=== PATIENT | male | born 1980 | race Caucasian/White ===

== ENCOUNTER 2018-05-27 09:10 | Emergency (ER) | payer MEDICARE ==
[2018-05-27] MEDS ORDERED: SULF1TAB24 PO (09:51)
[2018-05-27] MEDS ORDERED: CEPH-264 PO (09:51)
--- NOTE | 2018-05-27 09:51 | PHYS DOC ---
Adult General Chief Complaint Chief Complaint: SKIN PROBLEM HPI HPI Patient is a 37-year-old male who presents for evaluation of skin lesion to left groin. He states he has had lesions in this area many times in the past and that he usually tries to get put on antibiotics early on that he does not require an incision and drainage. He is HIV positive and moved to the area recently and does not yet have an infectious disease doctor. He states that he sweats a lot and has been told that he has hidradenitis suppurativa. He is alert and oriented 4, calm, and appears to be no distress. He waits tables for a living and states the hot weather has been making him sweat more than usual. Review of Systems Review of Systems Constitutional: Denies fever or chills [] Eyes: Denies change in visual acuity, redness, or eye pain [] HENT: Denies nasal congestion or sore throat [] Respiratory: Denies cough or shortness of breath [] Cardiovascular: No additional information not addressed in HPI [] GI: Denies abdominal pain, nausea, vomiting, bloody stools or diarrhea [] : Denies dysuria or hematuria [] left groin lesion Musculoskeletal: Denies back pain or joint pain [] Integument: Denies rash [] left groin lesion Neurologic: Denies headache, focal weakness or sensory changes [] Endocrine: Denies polyuria or polydipsia [] All other systems were reviewed and found to be within normal limits, except as documented in this note. Physical Exam Physical Exam Constitutional: Well developed, well nourished, no acute distress, non-toxic appearance. [] HENT: Normocephalic, atraumatic, bilateral external ears normal, oropharynx moist, no oral exudates, nose normal. [] Eyes: PERRLA, EOMI, conjunctiva normal, no discharge. [] Neck: Normal range of motion, no tenderness, supple, no stridor. [] Cardiovascular:Heart rate regular rhythm, no murmur [] Lungs & Thorax: Bilateral breath sounds clear to auscultation [] Abdomen: Bowel sounds normal, soft, no tenderness, no masses, no pulsatile masses. [] Skin: Warm, dry, no erythema, no rash. [] left groin nodule/lesion, no fluctuance, not ready for I&D at this time, no skin redness, superficial Back: No tenderness, no CVA tenderness. [] Extremities: No tenderness, no cyanosis, no clubbing, ROM intact, no edema. [] Neurologic: Alert and oriented X 3, normal motor function, normal sensory function, no focal deficits noted. [] Psychologic: Affect normal, judgement normal, mood normal. [] EKG EKG [] Radiology/Procedures Radiology/Procedures [] Course & Med Decision Making Course & Med Decision Making Pertinent Labs and Imaging studies reviewed. (See chart for details) [] Dragon Disclaimer Dragon Disclaimer This electronic medical record was generated, in whole or in part, using a voice recognition dictation system. Departure Departure: Impression: Primary Impression: Carbuncle of groin Disposition: HOME, SELF-CARE Condition: STABLE Referrals: PCPDEMIAN (PCP) VADIM BISHOP MD Patient Instructions: Abscess, Cellulitis Additional Instructions: Take the prescribed antibiotics as directed. Follow-up with Dr. Bishop from infectious disease within the next 2-3 days. Return to the emergency Department immediately for new or worsening symptoms. Scripts Cephalexin (KEFLEX) 500 Mg Capsule 1 CAP PO TID, #30 CAP Prov: ABBY NOEL DO 05/27/18 Sulfamethoxazole/Trimethoprim (BACTRIM DS TABLET) 1 Each Tablet 1 TAB PO BID, #20 TAB Prov: ABBY NOEL DO 05/27/18 ABBY NOEL DO May 27, 2018 09:51
[2018-05-27 10:15] VITALS: BP 102/66
== END 2018-05-27 10:16 | disposition home or self-care (01) ==
LOC: ER 09:10
DX: L02.234 Carbuncle of groin (principal)
CPT/HCPCS: 99283

== ENCOUNTER 2018-06-07 09:48 | Emergency (ER) | payer MEDICARE ==
[~2018-06-07] VITALS: Ht 175.3 cm; Wt 65.8 kg
[~2018-06-07 09:48] MED LIST: CEPH-264 PO; SULF1TAB24 PO
[2018-06-07 09:55] VITALS: BP 137/80
[2018-06-07] MEDS ORDERED: IBUP600T16 PO (10:09)
--- NOTE | 2018-06-07 10:09 | PHYS DOC ---
Past History Past Medical History: HIV Past Surgical History: No Surgical History Alcohol Use: None Drug Use: None Adult General Chief Complaint Chief Complaint: SHOULDER INJURY HPI HPI 37-year-old right-handed male patient with history of HIV state he lifted some heavy weight and was above his head 3 days ago and since yesterday has had pain in right shoulder pain with painful range of abduction of his shoulder. Patient denies focal neuro deficit, fever and chills, nausea and vomiting, history of the same problem. Review of Systems Review of Systems Constitutional: Denies fever or chills [] Eyes: Denies change in visual acuity, redness, or eye pain [] HENT: Denies nasal congestion or sore throat [] Respiratory: Denies cough or shortness of breath [] Cardiovascular: No additional information not addressed in HPI [] GI: Denies abdominal pain, nausea, vomiting, bloody stools or diarrhea [] : Denies dysuria or hematuria [] Musculoskeletal: Denies back pain, reports joint pain [] Integument: Denies rash or skin lesions [] Neurologic: Denies headache, focal weakness or sensory changes [] Endocrine: Denies polyuria or polydipsia [] All other systems were reviewed and found to be within normal limits, except as documented in this note. Allergies Allergies Allergies Coded Allergies Type Severity Reaction Last Updated Verified clindamycin Allergy Unknown 05/27/18 Yes Physical Exam Physical Exam Constitutional: Well developed, well nourished, mild distress, non-toxic appearance. [] HENT: Normocephalic, atraumatic Eyes: PERRLA, EOMI, conjunctiva normal, no discharge. [] Neck: Normal range of motion, no tenderness, supple, no stridor. [] Cardiovascular:Heart rate regular rhythm, no murmur [] Lungs & Thorax: Bilateral breath sounds clear to auscultation [] Skin: Warm, dry, no erythema, no rash. [] Back: No tenderness, no CVA tenderness. [] Extremities: Right shoulder without deformity or edema, limited abduction because of pain, No tenderness, no cyanosis, no clubbing, no edema. [] Neurologic: Alert and oriented X 3, normal motor function, normal sensory function, no focal deficits noted. [] Psychologic: Affect normal, judgement normal, mood normal. [] Current Patient Data Vital Signs Vital Signs Date Time Temp Pulse Resp B/P (MAP) Pulse Ox O2 Delivery O2 Flow Rate FiO2 06/07/18 09:55 87 18 100 Room Air EKG EKG [] Radiology/Procedures Radiology/Procedures [] Course & Med Decision Making Course & Med Decision Making Evaluation of patient in ER showed 37-year-old male patient with complaining of pain in the right shoulder after lifting weights. Patient had limited range of abduction because of pain. Shoulder sling was applied and patient instructed to perform shoulder exercises. Dragon Disclaimer Dragon Disclaimer This electronic medical record was generated, in whole or in part, using a voice recognition dictation system. Departure Departure: Impression: Primary Impression: Rotator cuff injury Additional Impression: HIV (human immunodeficiency virus infection) Disposition: HOME, SELF-CARE (at [facility]) Condition: STABLE Referrals: PCP,NO (PCP) Patient Instructions: Rotator Cuff Injury Additional Instructions: Apply ice on the affected area Follow-up with your primary care physician in 3-5 days Return to ER if not getting better Scripts Ibuprofen (IBUPROFEN) 600 Mg Tablet 600 MG PO TID, #20 TAB Prov: HAYDER LUI MD 06/07/18 Problem Qualifiers HAYDER LUI MD Jun 07, 2018 10:09
== END 2018-06-07 10:12 | disposition home or self-care (01) ==
LOC: ER 09:48
DX: S46.001A Unspecified injury of muscle(s) and tendon(s) of the rotator cuff of right shoulder, initial encounter (principal); Z88.1 Allergy status to other antibiotic agents; X50.0XXA Overexertion from strenuous movement or load, initial encounter; Y93.89 Activity, other specified; Y99.8 Other external cause status; Y92.89 Other specified places as the place of occurrence of the external cause
CPT/HCPCS: 99282

== ENCOUNTER 2018-08-26 09:09 | Emergency (ER) | payer MEDICARE ==
[~2018-08-26] VITALS: Ht 175.3 cm; Wt 68.0 kg
[~2018-08-26 09:09] MED LIST changes: +IBUP600T16 PO
[2018-08-26] MEDS ORDERED: HYDR25TA PO (09:33)
--- NOTE | 2018-08-26 09:33 | PHYS DOC ---
Past History Past Medical History: HIV Past Surgical History: No Surgical History Alcohol Use: None Drug Use: None Adult General Chief Complaint Chief Complaint: SKIN RASH/ABSCESS HPI HPI Patient is a 37 year old male with history of HIV who presents with complaining of pruritic rash on bilateral cubital area and flanks since yesterday without shortness of breath, fever and chills, nausea and vomiting history of the same rash, sick contact. Review of Systems Review of Systems Constitutional: Denies fever or chills [] Eyes: Denies change in visual acuity, redness, or eye pain [] HENT: Denies nasal congestion or sore throat [] Respiratory: Denies cough or shortness of breath [] Cardiovascular: No additional information not addressed in HPI [] GI: Denies abdominal pain, nausea, vomiting, bloody stools or diarrhea [] : Denies dysuria or hematuria [] Musculoskeletal: Denies back pain or joint pain [] Integument: Reports rash Neurologic: Denies headache, focal weakness or sensory changes [] Endocrine: Denies polyuria or polydipsia [] All other systems were reviewed and found to be within normal limits, except as documented in this note. Allergies Allergies Allergies Coded Allergies Type Severity Reaction Last Updated Verified clindamycin Allergy Unknown 05/27/18 Yes Physical Exam Physical Exam Constitutional: Well developed, well nourished, mild distress, non-toxic appearance. [] HENT: Normocephalic, atraumatic, bilateral external ears normal, oropharynx moist, no oral exudates, nose normal. [] Eyes: PERRLA, EOMI, conjunctiva normal, no discharge. [] Neck: Normal range of motion, no tenderness, supple, no stridor. [] Cardiovascular:Heart rate regular rhythm, no murmur [] Lungs & Thorax: Bilateral breath sounds clear to auscultation [] Skin: Warm, dry, no erythema, scattered papular rash on bilateral cubital area and flanks without sign of infection Back: No tenderness, no CVA tenderness. [] Extremities: No tenderness, no cyanosis, no clubbing, ROM intact, no edema. [] Neurologic: Alert and oriented X 3, normal motor function, normal sensory function, no focal deficits noted. [] Psychologic: Affect anxious, judgement normal, mood normal. [] EKG EKG [] Radiology/Procedures Radiology/Procedures [] Course & Med Decision Making Course & Med Decision Making Evaluation of patient in ER showed 37-year-old male patient with history of HIV presented with pruritic rash since yesterday. Patient had papular rash that looked like insect bite or allergic reaction. Patient instructed to take hydroxyzine and follow up with his HIV specialist in couple days if not getting better. Dragon Disclaimer Dragon Disclaimer This electronic medical record was generated, in whole or in part, using a voice recognition dictation system. Departure Departure: Impression: Primary Impression: Rash due to allergy Additional Impression: HIV (human immunodeficiency virus infection) Disposition: HOME, SELF-CARE (at 0 [id number]) Condition: STABLE Referrals: PCP,NO (PCP) Patient Instructions: Insect Bite, Rash Additional Instructions: Follow-up with your primary care physician in 2-3 days Return to ER if not getting better Scripts Hydroxyzine Hcl (HYDROXYZINE HCL) 25 Mg Tablet 1 TAB PO TID PRN for ITCHING, #30 TAB Prov: HAYDER LUI MD 08/26/18 Problem Qualifiers HAYDER LUI MD Aug 26, 2018 09:33
[2018-08-26 10:43] VITALS: BP 117/78
== END 2018-08-26 10:15 | disposition home or self-care (01) ==
LOC: ER 09:09
DX: T78.40XA Allergy, unspecified, initial encounter (principal); R21 Rash and other nonspecific skin eruption; Z21 Asymptomatic human immunodeficiency virus [HIV] infection status; Z88.1 Allergy status to other antibiotic agents; X58.XXXA Exposure to other specified factors, initial encounter
CPT/HCPCS: 99283

== ENCOUNTER 2021-06-16 21:09 | Emergency (ER) | payer MEDICARE, MEDICAID ==
[~2021-06-16] VITALS: Ht 177.8 cm; Wt 78.8 kg
[~2021-06-16 21:09] MED LIST changes: +HYDR25TA PO
--- NOTE | 2021-06-16 21:12 | PHYS DOC ---
Past History Past Medical History: Anxiety, HIV Past Surgical History: No Surgical History Alcohol Use: None Drug Use: None General Adult HPI: HPI: ".. I am never going skate boarding again.. or at least for a while.. I messed up this Rt. foot and ankle.... " Patient is a 40 year old male who presents with above hx and complaints Rt. foot injury. Patient has obvious swelling and localized pain at proximal side of right fifth metatarsal. Has positive pain with foot squeeze. Calcaneus appears to be stable and Achilles appears to be stable. Does have some lateral malleolus tenderness and laxity on drawer. No upper leg tenderness. No other injury in the skateboard fall. Patient normally follows with Dr. Robison infectious disease at [facility]. Reportedly his HIV status is stable. No recent travel. No specific ill contacts. Pt. is unable to bear weight on right foot and ankle. Cap refill in toes and right foot is equal to left foot. Review of Systems: Review of Systems: Constitutional: Denies fever or chills Eyes: Denies change in visual acuity HENT: Denies nasal congestion or sore throat Respiratory: Denies cough or shortness of breath Cardiovascular: Denies chest pain or edema GI: Denies abdominal pain, nausea, vomiting, bloody stools or diarrhea : Denies dysuria Musculoskeletal: Complains of right ankle and foot pain Integument: Denies rash Neurologic: Denies headache, focal weakness or sensory changes Endocrine: Denies polyuria or polydipsia Lymphatic: Denies swollen glands Psychiatric: Denies depression or anxiety Family History: Family History: Noncontributory to presentation Current Medications: Current Meds: See nursing for home meds Allergies: Allergies: Allergies Coded Allergies Type Severity Reaction Last Updated Verified clindamycin Allergy Unknown 05/27/18 Yes Physical Exam: PE: Constitutional: in acute distress, non-toxic appearance. [] HENT: Normocephalic, atraumatic, bilateral external ears normal, oropharynx moist, no oral exudates, nose normal. [] Eyes: PERRLA, EOMI, conjunctiva normal, no discharge. [] Neck: Normal range of motion, no tenderness, supple, no stridor. [] Cardiovascular:Heart rate regular rhythm, no murmur [] Lungs & Thorax: Bilateral breath sounds equal apex on auscultation [] Abdomen: Bowel sounds normal, soft, no tenderness, no masses, no pulsatile masses. [] Skin: Warm, dry, no erythema, no rash. [] Back: No tenderness, no CVA tenderness. [] Extremities: No tenderness, no cyanosis, no clubbing, ROM intact, no edema. Except for findings in right foot and ankle as per HPI Neurologic: Alert and oriented X 3, normal motor function, normal sensory function, no focal deficits noted. [] Psychologic: Affect anxious, judgement normal, mood normal. [] EKG: EKG: [] Radiology/Procedures: Radiology/Procedures: [][place] [address] IMAGING REPORT Signed PATIENT: LAWSON FERGUSON ACCOUNT: [id number] : 1980 LOCATION: ER AGE: 40 SEX: M EXAM STATUS: DEP ER ORD. PHYSICIAN: REBA EVERETT MD REASON: skate board -injry PROCEDURE: FOOT RIGHT 3V XR EXAM OF ANKLE_RIGHT 3VIEWS, XR FOOT_RIGHT 3 VIEWS History: Reason: skate board -injry / Spl. Instructions: / History: . Pain Technique: 3 views right ankle and 3 views right foot Comparison: None. Findings: Lateral ankle soft tissue swelling. No dislocation. Acute fifth metatarsal base fracture with adjacent soft tissue swelling. Impression: 1. Acute fifth metatarsal base fracture. Electronically signed by: Peter Macedo DO (06/16/2021 11:15 PM) [facility] DICTATED AND SIGNED BY: PETER MACEDO DO DATE: 06/16/21 [id number] CC: VADIM ROBISON MD; REBA EVERETT MD ~MTH0 0 Heart Score: C/O Chest Pain: N/A Risk Factors: Risk Factors: DM, Current or recent (<one month) smoker, HTN, HLP, family history of CAD, obesity. Risk Scores: Score 0 - 3: 2.5% MACE over next 6 weeks - Discharge Home Score 4 - 6: 20.3% MACE over next 6 weeks - Admit for Clinical Observation Score 7 - 10: 72.7% MACE over next 6 weeks - Early Invasive Strategies Course & Med Decision Making: Course & Med Decision Making Pertinent Labs and Imaging studies reviewed. (See chart for details) Patient to wear splint. Use crutches. Elevate ankle. Follow-up with [facility]. Take Tylenol and ibuprofen as needed for pain. Must follow-up. Distal neurovascular intact after application of splint. Impression: 1. Fracture right fifth metatarsal. Proximal 2. Hx. HIV [] Dragon Disclaimer: Dragon Disclaimer: This electronic medical record was generated, in whole or in part, using a voice recognition dictation system. Departure Departure: Referrals: NON,STAFF (PCP) Dragon Disclaimer This chart was dictated in whole or in part using Voice Recognition software in a busy, high-work load, and often noisy Emergency Department environment. It may contain unintended and wholly unrecognized errors or omissions. REBA EVERETT MD Jun 16, 2021 21:12
[2021-06-16 21:20] VITALS: BP 125/82
[2021-06-16] MEDS ORDERED: HYDROcodon/IBUPROFEN 7.5/200MG 1 TAB TABLET PO ONE (21:30)
[2021-06-16] MEDS ORDERED: oxyCODONE/APAP 5/325 1 TAB TABLET PO ONE (22:00)
[2021-06-16] MEDS ORDERED: ACETAMINOPHEN 500 MG TABLET PO ONE ×2 (22:15)
[2021-06-16] MEDS ORDERED: KETOROLAC 60 MG/2 ML VIAL. IM ONE (22:15)
--- NOTE | 2021-06-16 23:17 | RAD ---
XR EXAM OF ANKLE_RIGHT 3VIEWS, XR FOOT_RIGHT 3 VIEWS History: Reason: skate board -injry / Spl. Instructions: / History: . Pain Technique: 3 views right ankle and 3 views right foot Comparison: None. Findings: Lateral ankle soft tissue swelling. No dislocation. Acute fifth metatarsal base fracture with adjacent soft tissue swelling. Impression: 1. Acute fifth metatarsal base fracture. Electronically signed by: Peter Macedo DO (06/16/2021 11:15 PM) [place]
== END 2021-06-16 23:15 | disposition home or self-care (01) ==
LOC: ER 21:09
DX: S92.351A Displaced fracture of fifth metatarsal bone, right foot, initial encounter for closed fracture (principal); Z88.1 Allergy status to other antibiotic agents; W01.0XXA Fall on same level from slipping, tripping and stumbling without subsequent striking against object, initial encounter; Y93.51 Activity, roller skating (inline) and skateboarding; Y92.89 Other specified places as the place of occurrence of the external cause; Y99.8 Other external cause status
CPT/HCPCS: 29515; 73610; 73630; 99283-25; 99284-25

== ENCOUNTER 2021-06-24 19:28 | Emergency (ER) | payer MEDICARE, MEDICAID ==
[~2021-06-24] VITALS: Ht 177.8 cm; Wt 78.8 kg
--- NOTE | 2021-06-24 19:31 | PHYS DOC ---
Past History Past Medical History: Anxiety, HIV Past Surgical History: No Surgical History Alcohol Use: Occasionally Drug Use: None General Adult HPI: HPI: ".. I got this groin abscess.. I have had it several times here on the left... It is kind of scarred up... I have been on Bactrim but it is not turning around like it should..." Patient is a 40 year old male who presents with above hx and complaint left groin abscess. Patient does have area that is hard and indurated and a central fluctuant area. Area of previous abscesses. Patient does have a history of HIV and follows with . Patient currently in a walking cast for prior right foot fracture from visit of 06/16/2021. Discussed options of treatment patient requests drainage of abscess. Review of Systems: Review of Systems: Constitutional: Denies fever or chills Eyes: Denies change in visual acuity HENT: Denies nasal congestion or sore throat Respiratory: Denies cough or shortness of breath Cardiovascular: Denies chest pain or edema GI: Denies abdominal pain, nausea, vomiting, bloody stools or diarrhea : Denies dysuria Musculoskeletal: Denies back pain or joint pain Integument: Complains of abscess left groin Neurologic: Denies headache, focal weakness or sensory changes Endocrine: Denies polyuria or polydipsia Lymphatic: Denies swollen glands Psychiatric: Denies depression or anxiety Family History: Family History: Noncontributory to presentation Current Medications: Current Meds: See nursing for home meds Allergies: Allergies: Allergies Coded Allergies Type Severity Reaction Last Updated Verified clindamycin Allergy Unknown 05/27/18 Yes Physical Exam: PE: Constitutional: Well developed, well nourished, moderate acute distress, non- toxic appearance. [] HENT: Normocephalic, atraumatic, bilateral external ears normal, oropharynx moist, no oral exudates, nose normal. [] Eyes: PERRLA, EOMI, conjunctiva normal, no discharge. [] Neck: Normal range of motion, no tenderness, supple, no stridor. [] Cardiovascular:Heart rate regular rhythm, no murmur [] Lungs & Thorax: Bilateral breath sounds clear to auscultation [] Abdomen: Bowel sounds normal, soft, no tenderness, no masses, no pulsatile masses. [] Skin: Warm, dry, no erythema, no rash. [] Abscess left groin Back: No tenderness, no CVA tenderness. [] Extremities: No tenderness, no cyanosis, no clubbing, ROM intact, no edema. Except right foot and walking cast. Neurologic: Alert and oriented X 3, normal motor function, normal sensory function, no focal deficits noted. [] Psychologic: Affect anxious, judgement normal, mood normal. [] EKG: EKG: [] Radiology/Procedures: Radiology/Procedures: [] Heart Score: C/O Chest Pain: N/A Risk Factors: Risk Factors: DM, Current or recent (<one month) smoker, HTN, HLP, family history of CAD, obesity. Risk Scores: Score 0 - 3: 2.5% MACE over next 6 weeks - Discharge Home Score 4 - 6: 20.3% MACE over next 6 weeks - Admit for Clinical Observation Score 7 - 10: 72.7% MACE over next 6 weeks - Early Invasive Strategies Course & Med Decision Making: Course & Med Decision Making Pertinent Labs and Imaging studies reviewed. (See chart for details) Procedure note-incision and drainage-area of abscess cleaned with Betadine. 1 stick with 11 blade. Return of purulent pus approximately 4 cc. Patient to apply warm compresses of salt water and Epson salt 4 times a day then apply Polysporin. Continue Bactrim. Follow-up with Dr. Bishop. Return if any concerns. Impression: 1. Groin abscess recurrent 2. HIV 3. Recent fracture right foot [] Dragon Disclaimer: Dragreginald Disclaimer: This electronic medical record was generated, in whole or in part, using a voice recognition dictation system. Departure Departure: Referrals: VADIM BISHOP MD (PCP) [place]rick Disclaimer This chart was dictated in whole or in part using Voice Recognition software in a busy, high-work load, and often noisy Emergency Department environment. It may contain unintended and wholly unrecognized errors or omissions. REBA EVERETT MD Jun 24, 2021 19:31
[2021-06-24 19:35] VITALS: BP 156/95
[2021-06-24] MEDS ORDERED: cefTRIAXone IM 1 GM VIAL IM ONE (19:45)
== END 2021-06-24 20:00 | disposition home or self-care (01) ==
LOC: ER 19:28
DX: L02.214 Cutaneous abscess of groin (principal); Z88.1 Allergy status to other antibiotic agents
CPT/HCPCS: 10060; 96372; 99283; J0696

== ENCOUNTER 2021-06-24 21:06 | Emergency (ER) | payer MEDICARE, MEDICAID ==
[~2021-06-24] VITALS: Ht 177.8 cm; Wt 78.8 kg
--- NOTE | 2021-06-24 21:10 | PHYS DOC ---
Past History Past Medical History: Anxiety, HIV Past Surgical History: No Surgical History Alcohol Use: Occasionally Drug Use: None General Adult HPI: HPI: ".. The site where you drained the abscess is still bleeding.. " Patient is a 40 year old MALE who presents with bleeding at site of I and D,earlier tonight. Patient denies any history of coagulopathy. Patient has been taking heavy doses of ibuprofen for right foot fracture. Patient's abscess site appears to have venous bleeding that continues to trickle. Patient employed direct pressure but bleeding return. Site cleaned of Betadine. Injected site with lidocaine 2% and placed Vicryl mattress x1. With adequate hemostasis. Patient instructed avoid further ibuprofen the next 24 hours. Take only Tylenol for pain. Follow-up primary care. Return if any concerns. Continue previous treatment for the groin abscess. May release suture once as adequate hemostasis in the next 2 to 3 days. Return if any concerns. Review of Systems: Review of Systems: Constitutional: Denies fever or chills Eyes: Denies change in visual acuity HENT: Denies nasal congestion or sore throat Respiratory: Denies cough or shortness of breath Cardiovascular: Denies chest pain or edema GI: Denies abdominal pain, nausea, vomiting, bloody stools or diarrhea : Denies dysuria Musculoskeletal: Denies back pain or joint pain except history of right foot fracture Integument: Denies rash Neurologic: Denies headache, focal weakness or sensory changes Endocrine: Denies polyuria or polydipsia Lymphatic: Denies swollen glands Psychiatric: Denies depression or anxiety Family History: Family History: Noncontributory Current Medications: Current Meds: See nursing for home meds Allergies: Allergies: Allergies Coded Allergies Type Severity Reaction Last Updated Verified clindamycin Allergy Unknown 05/27/18 Yes Physical Exam: PE: Constitutional: Well developed, well nourished, moderate acute functional distress, non-toxic appearance. [] HENT: Normocephalic, atraumatic, bilateral external ears normal, oropharynx moist, no oral exudates, nose normal. [] Eyes: PERRLA, EOMI, conjunctiva normal, no discharge. [] Neck: Normal range of motion, no tenderness, supple, no stridor. [] Cardiovascular:Heart rate regular rhythm, no murmur [] Lungs & Thorax: Bilateral breath sounds clear to auscultation [] Abdomen: Bowel sounds normal, soft, no tenderness, no masses, no pulsatile masses. [Site of I&D has been is oozing which is continuous.] Skin: Warm, dry, no erythema, no rash. [] Abscess chronic reoccurring left groin-scarring from previous I&D Back: No tenderness, no CVA tenderness. [] Extremities: No tenderness, no cyanosis, no clubbing, ROM intact, no edema. Foot and walking cast. Right foot. Neurologic: Alert and oriented X 3, normal motor function, normal sensory fu nction, no focal deficits noted. [] Psychologic: Affect anxious, judgement normal, mood normal. [] EKG: EKG: [] Radiology/Procedures: Radiology/Procedures: [] Heart Score: C/O Chest Pain: N/A Risk Factors: Risk Factors: DM, Current or recent (<one month) smoker, HTN, HLP, family history of CAD, obesity. Risk Scores: Score 0 - 3: 2.5% MACE over next 6 weeks - Discharge Home Score 4 - 6: 20.3% MACE over next 6 weeks - Admit for Clinical Observation Score 7 - 10: 72.7% MACE over next 6 weeks - Early Invasive Strategies Course & Med Decision Making: Course & Med Decision Making Pertinent Labs and Imaging studies reviewed. (See chart for details) Avoid excessive activity tonight. With direct pressure if it bleeds again. Return if any concerns. May remove sutures within 2 to 3 days. Avoid further use of ibuprofen. Tylenol for pain. Return if any concerns. Continue antibiotics as directed. Impression: 1. Bleeding from I&D site 2. Hx. HIV 3. Hx. Recent right foot fracture. [] Dragon Disclaimer: Rodrick Disclaimer: This electronic medical record was generated, in whole or in part, using a voice recognition dictation system. Departure Departure: Referrals: VADIM BISHOP MD (PCP) Rodrick Disclaimer This chart was dictated in whole or in part using Voice Recognition software in a busy, high-work load, and often noisy Emergency Department environment. It may contain unintended and wholly unrecognized errors or omissions. REBA EVERETT MD Jun 24, 2021 21:10
[2021-06-24 21:13] VITALS: BP 156/95
[2021-06-24] MEDS ORDERED: GELATIN SPONGE SIZE 12-7MM SPONGE. ONE (21:13)
[2021-06-24] MEDS ORDERED: LIDOCAINE 1%/EPI 1:100,000 20 ML VIAL. ONE (21:15)
== END 2021-06-24 21:48 | disposition home or self-care (01) ==
LOC: ER 21:06
DX: L76.22 Postprocedural hemorrhage of skin and subcutaneous tissue following other procedure (principal); Z88.1 Allergy status to other antibiotic agents
CPT/HCPCS: 99282